=== PATIENT | male | born 1990 | race Two or more races ===

== ENCOUNTER 2018-11-18 12:28 | Emergency (ER) | payer SELFPAY ==
[2018-11-18] MEDS ORDERED: Sodium Chloride 0.9% 1,000 ML IV STA (13:17)
[2018-11-18] MEDS ORDERED: Morphine 4 MG/ML VIAL IV STA (13:17)
--- NOTE | 2018-11-18 13:23 | ED PDOC ---
HPI: Abdomen Time Seen by Provider: 11/18/18 12:47 Chief Complaint (Nursing): Abdominal Pain Chief Complaint (Provider): Abdominal Pain History Per: Patient History/Exam Limitations: no limitations Onset/Duration Of Symptoms: Hrs Current Symptoms Are (Timing): Constant Additional Complaint(s): Patient is a 28 y/o male with no significant PMHx who presents to the ED for evaluation of constant, right, lower quadrant abdominal pain and swelling onset this morning. 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 Patient denies fever, nausea, vomiting, diarrhea, and constipation. Of note, patient had normal colonoscopy two years ago. PCP: None Provided Past Medical History Reviewed: Historical Data, Nursing Documentation, Vital Signs Vital Signs: Last Vital Signs Temp 97 F L 11/18/18 12:30 Pulse 111 H 11/18/18 12:30 Resp 16 11/18/18 12:30 BP 152/100 H 11/18/18 12:30 Pulse Ox 98 11/18/18 12:30 - Medical History PMH: No Chronic Diseases - Surgical History Surgical History: No Surg Hx - Family History Family History: States: No Known Family Hx - Allergies Allergies/Adverse Reactions: Allergies Allergy/AdvReac Type Severity Reaction Status Date / Time No Known Allergies Allergy Verified 11/18/18 12:32 Review of Systems ROS Statement: Except As Marked, All Systems Reviewed And Found Negative Constitutional: Negative for: Fever Gastrointestinal: Positive for: Abdominal Pain (and swelling in RLQ). Negative for: Nausea, Vomiting, Diarrhea, Constipation Physical Exam - Reviewed Nursing Documentation Reviewed: Yes Vital Signs Reviewed: Yes - Physical Exam Appears: Positive for: Non-toxic, No Acute Distress Head Exam: Positive for: ATRAUMATIC, NORMAL INSPECTION, NORMOCEPHALIC Skin: Positive for: Normal Color, Warm, Dry Eye Exam: Positive for: EOMI, Normal appearance, PERRL Neck: Positive for: Normal, Painless ROM, Supple Cardiovascular/Chest: Positive for: Regular Rate, Rhythm. Negative for: Murmur Respiratory: Positive for: Normal Breath Sounds. Negative for: Respiratory Distress Gastrointestinal/Abdominal: Positive for: Tenderness (RLQ). Negative for: Guarding, Rebound Back: Positive for: Normal Inspection. Negative for: L CVA Tenderness, R CVA Tenderness, Vertebral Tenderness Extremity: Positive for: Normal ROM. Negative for: Pedal Edema, Deformity Neurologic/Psych: Positive for: Alert, Oriented. Negative for: Motor/Sensory Deficits - ECG O2 Sat by Pulse Oximetry: 98 (RA) Pulse Ox Interpretation: Normal Medical Decision Making Medical Decision Making: Time: 1316 Plan: CT Abd & Pelvis IV Contrast CMP Urine Dipstick CBC PTT Prothrombin Time Morphine 2 mg IV IV Fluids Scribe Attestation: Documented by Prasanna Pérez, acting as a scribe for Nikky Longoria MD. Provider Scribe Attestation: All medical record entries made by the Scribe were at my direction and personally dictated by me. I have reviewed the chart and agree that the record accurately reflects my personal performance of the history, physical exam, medical decision making, and the department course for this patient. I have also personally directed, reviewed, and agree with the discharge instructions and disposition. Disposition - Disposition
[2018-11-18 13:52] LABS: BASO # 0.1 K/uL (0.0-0.2); BASO % 1.1 % (0.0-2.0); EOS % 0.8 % (0.0-4.0); HEMOGLOBIN 16.3 g/dL (12.0-18.0); LYMPH # 1.1 K/uL (1.0-4.3); LYMPH % 18.7 % (20.0-40.0); MEAN CELL VOLUME 95.6 fl (80.0-94.0); MEAN CORPUSCULAR HEMOGLOBIN 32.5 pg (27.0-31.0); MEAN PLATELET VOLUME 8.2 fl (7.2-11.7); MONO # 0.3 K/uL (0.0-0.8); MONO % 4.5 % (0.0-10.0); NEUT # 4.2 K/uL (1.8-7.0); NEUT % 74.9 % (50.0-75.0); NRBC % 0.1 % (0.0-0.0); RBC 5.03 Mil/uL (4.40-5.90); WHITE BLOOD COUNT 5.6 K/uL (4.8-10.8)
[2018-11-18 14:00] LABS: PROTHROMBIN TIME 11.2 Seconds (9.8-13.1)
[2018-11-18 14:02] LABS: PARTIAL THROMBOPLASTIN TIME 33.8 Seconds (25.6-37.1)
[2018-11-18 14:04] LABS: ALB/GLOB RATIO 1.4 (1.0-2.1); ALBUMIN 5.2 g/dL (3.5-5.0); ALT/SGPT 41 U/L (21-72); AST/SGOT 40 U/L (17-59); BLOOD UREA NITROGEN 11 mg/dl (9-20); CALCIUM 10.1 mg/dL (8.4-10.2); GFR NON-AFRICAN AMERICAN > 60
[2018-11-18] MEDS ORDERED: Sodium Chloride 0.9% 50 ML IV ONE (14:06)
[2018-11-18] MEDS ORDERED: Iohexol 300 100 ML IJ ONE (14:06)
--- NOTE | 2018-11-18 15:31 | ED PDOC ---
- Laboratory Results Result Diagrams: 11/18/18 13:40 11/18/18 13:40 Lab Results: PT 11.2 Seconds (9.8-13.1) 11/18/18 13:40 INR 1.0 11/18/18 13:40 APTT 33.8 Seconds (25.6-37.1) 11/18/18 13:40 Total Bilirubin 0.8 mg/dl (0.2-1.3) 11/18/18 13:40 AST 40 U/L (17-59) 11/18/18 13:40 ALT 41 U/L (21-72) 11/18/18 13:40 Alkaline Phosphatase 50 U/L (38-126) 11/18/18 13:40 Total Protein 8.8 G/DL (6.3-8.2) H 11/18/18 13:40 Albumin 5.2 g/dL (3.5-5.0) H 11/18/18 13:40 Globulin 3.6 gm/dL (2.2-3.9) 11/18/18 13:40 Albumin/Globulin Ratio 1.4 (1.0-2.1) 11/18/18 13:40 - ECG O2 Sat by Pulse Oximetry: 98 (RA) Pulse Ox Interpretation: Normal Medical Decision Making Medical Decision Making: Time: 1500 --Patient signed out to this provider by Dr. Longoria, pending CT results. Time: 1524 CT Abdomen and Pelvis FINDINGS: LOWER THORAX: Heart size within range of normal. No significant pericardial effusion. Small hiatal hernia. Lung bases clear. LIVER: Liver exhibits normal size measuring nearly 18 cm in CC dimension.. No evidence of hepatic masses collections or calcifications. Portal and splenic veins are opacified. GALLBLADDER AND BILE DUCTS: Gallbladder physiologically distended. No evidence of intraluminal gallbladder calculi. E. PANCREAS: Unremarkable. No mass. No ductal dilatation. SPLEEN: Spleen exhibits normal size and attenuation pattern without mass collection or calcification.. ADRENALS: No adrenal lesions are identified. KIDNEYS AND URETERS: Kidneys demonstrate symmetric nephrograms. No evidence of nephrolithiasis or hydronephrosis.. BLADDER: Urinary bladder is incompletely distended which in part accounts for thick- walled appearance. Muscular hypertrophy may contribute. Possibility of a cystitis not excluded. REPRODUCTIVE: . Prostate gland is enlarged measuring approximately 4.3 cm in transverse dimension. APPENDIX: Appendix not seen with complete certainty however no obvious inflammatory changes right lower quadrant of the abdomen to suggest acute appendicitis. Note that the possibility of an early acute appendicitis cannot be excluded based on the current exam and therefore correlation with history physical exam and laboratory values recommended. BOWEL: Evaluation of the bowel is somewhat limited due to the lack of oral contrast material. The stomach is incompletely distended with thick-walled appearance. Visualized loops of small bowel exhibit relatively normal contour and caliber however there does appear to be a numerous bowel loops are contained fecalized content suggesting stasis. Moderate amount of stool is also present within the cecum and at ascending as well as proximal transverse colon and splenic flexure region suggesting mild localized fecal retention PERITONEUM: Unremarkable. No fluid collection. No free air. LYMPH NODES: Unremarkable. No enlarged lymph nodes. VASCULATURE: Unremarkable. No aortic aneurysm. No aortic atherosclerotic calcification or mural plaque present. BONES: No fracture or destructive lesion. OTHER FINDINGS: None. IMPRESSION: Findings suggest mild localized fecal retention/constipation with changes of fecal retention in multiple loops of small bowel.. The appendix not positively identified however no obvious inflammatory changes present in the right lower quadrant of the abdomen. Clinical correlation recommended the. Mild bladder wall thickening likely due to incomplete distention and muscular hypertrophy however cystitis not excluded. DW pt findings and plan of care. Followup PMD or [facility] 24-48 hour reeval of abd pain. GI followup 1-2 weeks. Reasons to RTER reviewed Stable for dc. Scribe Attestation: Documented by Marisabel Luque, acting as a scribe for Sofy Rodriguez MD. Provider Scribe Attestation: All medical record entries made by the Scribe were at my direction and personally dictated by me. I have reviewed the chart and agree that the record accurately reflects my personal performance of the history, physical exam, medical decision making, and the department course for this patient. I have also personally directed, reviewed, and agree with the discharge instructions and disposition. Disposition Counseled Patient/Family Regarding: Studies Performed, Diagnosis, Need For Followup, Rx Given - Clinical Impression Clinical Impression: Abdominal pain - POA Present On Arrival: None - Disposition Referrals: [facility] [Outside] Rell Vyas MD [Medical Doctor] - (Please followup with your doctor or [facility] in 24-48 hours for reevaluation Followup with a supervisor testing in 1-2 weeks for further evaluation of your pain.) Disposition: Routine/Home Disposition Time: 16:00 Condition: STABLE Additional Instructions: BLAND DIET WITH PLENTY OF HYDRATING FLUIDS TAKE BENTYL FOR CRAMPY PAIN. YOU COULD ALSO TAKE IBUPROFEN (MOTRIN) AND/OR ACETAMINOPHEN (TYLENOL) FOR PAIN WELL. Prescriptions: Dicyclomine [Bentyl] 20 mg PO QID PRN #20 tab PRN Reason: abdominal pain Instructions: Acute Abdomen (Belly Pain), Adult (DC) Forms: [facility] (Sinhala), [facility] ED School/Work Excuse
--- NOTE | 2018-11-18 16:01 | CT ---
Date of service: 11/18/2018 PROCEDURE: CT Abdomen and Pelvis. HISTORY: RLQ pain COMPARISON: None. TECHNIQUE: Contiguous axial images of the abdomen and pelvis performed following intravenous injection of approximately 95 cc Omnipaque 300 contrast material. Additional 2D sagittal and coronal reformats generated. Radiation dose: Total exam DLP = 282.91 mGy-cm. This CT exam was performed or more of the following dose reduction techniques: Automated exposure control, adjustment of the mA and/or kV according to patient size, and/or use of iterative reconstruction technique. FINDINGS: LOWER THORAX: Heart size within range of normal. No significant pericardial effusion. Small hiatal hernia. Lung bases clear. LIVER: Liver exhibits normal size measuring nearly 18 cm in CC dimension.. No evidence of hepatic masses collections or calcifications. Portal and splenic veins are opacified. GALLBLADDER AND BILE DUCTS: Gallbladder physiologically distended. No evidence of intraluminal gallbladder calculi. E. PANCREAS: Unremarkable. No mass. No ductal dilatation. SPLEEN: Spleen exhibits normal size and attenuation pattern without mass collection or calcification.. ADRENALS: No adrenal lesions are identified. KIDNEYS AND URETERS: Kidneys demonstrate symmetric nephrograms. No evidence of nephrolithiasis or hydronephrosis.. BLADDER: Urinary bladder is incompletely distended which in part accounts for thick-walled appearance. Muscular hypertrophy may contribute. Possibility of a cystitis not excluded. REPRODUCTIVE: . Prostate gland is enlarged measuring approximately 4.3 cm in transverse dimension. APPENDIX: Appendix not seen with complete certainty however no obvious inflammatory changes right lower quadrant of the abdomen to suggest acute appendicitis. Note that the possibility of an early acute appendicitis cannot be excluded based on the current exam and therefore correlation with history physical exam and laboratory values recommended. BOWEL: Evaluation of the bowel is somewhat limited due to the lack of oral contrast material. The stomach is incompletely distended with thick-walled appearance. Visualized loops of small bowel exhibit relatively normal contour and caliber however there does appear to be a numerous bowel loops are contained fecalized content suggesting stasis. Moderate amount of stool is also present within the cecum and at ascending as well as proximal transverse colon and splenic flexure region suggesting mild localized fecal retention PERITONEUM: Unremarkable. No fluid collection. No free air. LYMPH NODES: Unremarkable. No enlarged lymph nodes. VASCULATURE: Unremarkable. No aortic aneurysm. No aortic atherosclerotic calcification or mural plaque present. BONES: No fracture or destructive lesion. OTHER FINDINGS: None. IMPRESSION: Findings suggest mild localized fecal retention/constipation with changes of fecal retention in multiple loops of small bowel.. The appendix not positively identified however no obvious inflammatory changes present in the right lower quadrant of the abdomen. Clinical correlation recommended the. Mild bladder wall thickening likely due to incomplete distention and muscular hypertrophy however cystitis not excluded.
[2018-11-18 16:13] VITALS: BP 110/67; PULSE 81; RESP 18; TEMP 99.2
[2018-11-18 16:44] VITALS: O2SAT 98
== END 2018-11-18 16:20 | disposition home or self-care (01) ==
LOC: H.ER 12:28
DX: R10.31 Right lower quadrant pain (principal)
CPT/HCPCS: 74177; 80053; 85025; 85610; 85730; 99283; Q9967